=== PATIENT | female | born 1965 | race Caucasian/White ===

== ENCOUNTER 2020-03-18 00:34 | Emergency (ER) | payer OTHER ==
[~2020-03-18] VITALS: Ht 157.5 cm; Wt 86.8 kg
--- NOTE | 2020-03-18 01:06 | NUR ---
ASSESSMENT MADE. CHART UP FOR MD TO SEE. C/O LEFT FLANK PAIN RADIATES TO LLQ X 4 HRS OFF AND ON SHARP PAINS. + N/V
--- NOTE | 2020-03-18 01:10 | NUR ---
PA at bedside.
[2020-03-18] MEDS ORDERED: SODIUM CHLORIDE 0.9% 1,000ML IV ONE (01:30)
[2020-03-18] MEDS ORDERED: ONDANSETRON 2MG/ML, 2ML IVPush ONE (01:30)
[2020-03-18] MEDS ORDERED: SODIUM CHLORIDE FLUSH 10ML SYR IVF ONE (01:30)
[2020-03-18] MEDS ORDERED: KETOROLAC 30 MG/1 ML IVPush ONE (01:30)
[2020-03-18 01:33] LABS: BASOPHILS % (AUTO) 0 % (0-1); EOSINOPHILS % (AUTO) 0 % (1-7); LYMPHOCYTES % (AUTO) 4 % (22-44); MEAN CORPUSCULAR HEMOGLOBIN 31.6 pg (27.0-34.8); MEAN CORPUSCULAR HGB CONC 33.4 g/dL (32.4-35.8); MEAN PLATELET VOLUME 9.3 fL (7.4-10.4); MONOCYTES % (AUTO) 5 % (2-9); NEUTROPHILS % (AUTO) 91 % (42-75); PLATELET COUNT 180 x10^3/uL (130-400); RED BLOOD COUNT 4.78 x10^6/uL (3.82-5.3); RED CELL DISTRIBUTION WIDTH 13.1 % (9.6-15.2)
[2020-03-18] MEDS ORDERED: ONDANSETRON 2MG/ML, 2ML ONE (01:37)
[2020-03-18] MEDS ORDERED: KETOROLAC 30 MG/1 ML ONE (01:37)
[2020-03-18 01:44] LABS: ALANINE AMINOTRANSFERASE 44 U/L (12-78); ALBUMIN 4.1 g/dL (3.4-5.0); ANION GAP 5 mmol/L (5-15); CHLORIDE 105 mmol/L (98-107); CREATININE 1.18 mg/dL (0.55-1.02)
[2020-03-18 01:47] LABS: ALKALINE PHOSPHATASE 78 U/L (45-117); BILIRUBIN,TOTAL 0.3 mg/dL (0.2-1.0); TOTAL PROTEIN 7.9 g/dL (6.4-8.2)
[2020-03-18 01:51] LABS: MICROSCOPIC INDICATED
[2020-03-18 02:05] LABS: MD SCAN
[2020-03-18 03:09] VITALS: BP 125/63
== END 2020-03-18 03:36 | disposition home or self-care (01) ==
LOC: ED 01:54
DX: N13.2 Hydronephrosis with renal and ureteral calculous obstruction (principal); R10.9 Unspecified abdominal pain; R11.2 Nausea with vomiting, unspecified
CPT/HCPCS: 36415; 74176; 80053; 81001; 85025; 96361; 96374; 96375; 99284; J1885; J2405; J7030